=== PATIENT | male | born 1945 | race Caucasian/White ===

== ENCOUNTER 2022-05-21 05:15 | Day surgery (SDC) | payer OTHER ==
[~2022-05-21] VITALS: Ht 175.3 cm; Wt 81.6 kg
[~2022-05-21 05:15] MED LIST: CARDURA XL4 MG PO; CHILDREN'S ASPI81 MG PO; CLONAZEPAM1 MG PO; HYDRALAZINE HCL50 MG PO; IRBESARTAN-HCT1 EAC1 PO; LEVO-T25 MCG PO; NIFEDIPINE ER30 M1 PO
[2022-05-21] MEDS ORDERED: PERCOCET 5-3251 EACH PO (08:26)
[2022-05-21] MEDS ORDERED: RECTICARE30 GM TOP (08:27)
== END 2022-05-21 13:30 | disposition home or self-care (01) ==
LOC: CIR.AMB 05:15
PROVIDERS: ATTEND Surgery
DX: D12.7 Benign neoplasm of rectosigmoid junction (principal); Z20.822 Contact with and (suspected) exposure to COVID-19; E03.9 Hypothyroidism, unspecified; I11.9 Hypertensive heart disease without heart failure